=== PATIENT | female | born 1995 | race Caucasian/White ===

== ENCOUNTER 2016-07-13 00:45 | Emergency (ER) | payer OTHER ==
[~2016-07-13] VITALS: Ht 154.9 cm; Wt 62.3 kg
[~2016-07-13 00:45] MED LIST: CLON.5 PO; LAMO150T PO
[2016-07-13 00:53] VITALS: BP 134/93; PULSE 91; RESP 20; TEMP 98.8; O2SAT 97
[2016-07-13] MEDS ORDERED: ONDANSETRON HCL 4 MG/2 ML VIAL IV PUSH ONE (01:30)
[2016-07-13 01:49] LABS: BLOOD, URINE LARGE (NEG); GLUCOSE,URINE NEG (NEG); KETONE, URINE NEG (NEG); NITRITE,URINE NEG (NEG)
[2016-07-13 01:50] LABS: AUTOMATED NEUTROPHIL # 7.8 TH/MM3 (1.8-7.7); BASOPHIL # 0.2 TH/MM3 (0-0.2); BASOPHIL % 1.8 % (0.0-2.0); EOSINOPHIL # 0.1 TH/MM3 (0-0.4); EOSINOPHIL % 1.2 % (0.0-4.0); HEMATOCRIT 41.2 % (35.0-46.0); HEMO FLAGS DIFF FINAL; LYMPH % 16.7 % (9.0-44.0); LYMPHOCYTE # 1.8 TH/MM3 (1.0-4.8); MEAN CORPUSCULAR HEMOGLOBIN 29.5 PG (27.0-34.0); MEAN CORPUSCULAR HGB CONC 33.9 % (32.0-36.0); MONO % 6.6 % (0.0-8.0); NEUT % 73.7 % (16.0-70.0); PLATELET COUNT 302 TH/MM3 (150-450); RED BLOOD COUNT 4.74 MIL/MM3 (4.00-5.30); RED CELL DISTRIBUTION WIDTH 12.1 % (11.6-17.2); WHITE BLOOD COUNT 10.6 TH/MM3 (4.0-11.0)
[2016-07-13 01:51] LABS: URINE COLOR YELLOW (YELLW/STRAW)
[2016-07-13 01:54] LABS: BACTERIA, URINE OCC /hpf; COMMENT (UR) CULTURE INDICATED; CULTURE IF INDICATED CULTURE INDICATED
[2016-07-13 01:56] LABS: CHLORIDE 107 MEQ/L (98-107); POTASSIUM 3.8 MEQ/L (3.5-5.1); SODIUM (NA) 142 MEQ/L (136-145)
[2016-07-13 02:00] LABS: ANION GAP 10 MEQ/L (5-15); BICARBONATE 25.4 MEQ/L (21.0-32.0); BLOOD UREA NITROGEN 9 MG/DL (7-18)
[2016-07-13 02:03] LABS: ALT (GPT) 33 U/L (10-53); AST (GOT) 15 U/L (15-37); GLOMERULAR FILTRATION RATE 94 ML/MIN (>89)
[2016-07-13 02:05] LABS: TOTAL BILIRUBIN ADULT 0.4 MG/DL (0.2-1.0)
[2016-07-13 02:06] LABS: ALKALINE PHOSPHATASE 65 U/L (45-117)
--- NOTE | 2016-07-13 02:18 | PD ---
HPI Chief Complaint: Abdominal Pain Time Seen by Provider: 01:22 Travel History International Travel<30 days: No Contact w/Intl Traveler<30days: No Traveled to known affect area: No History of Present Illness HPI 22 year-old female presents to the emergency department by private transportation for complaint of right lower quadrant abdominal pain and pelvic pain with vaginal bleeding. Patient states that she is physically menstruating but her menstrual pain/cramps for more severe than ever. Patient states that she has had associated nausea and poor oral intake. Patient denies fever chills. No prior history of abdominal surgeries. No prior history of endometriosis and ovarian cyst. Patient does have heavy periods but states typically is brief in duration and response to anti-inflammatories. Patient states symptoms have been present since this evening and progressively worsening and not resolving with ibuprofen and heating pad use. Patient is not sexually active. No dysuria frequency or urgency. No change in bowel habits. Patient describes pain as 8/10 in intensity. No alleviating factors and notes that palpation and movement exacerbates symptoms. PFSH Past Medical History Narrative Medical Anxiety depression no surgeries no tobacco use nursing notes reviewed Bipolar Disorder: Yes Anxiety: Yes Depression: Yes Diminished Hearing: No Tetanus Vaccination: Never Vaccinated ?: Not : 0 Para: 0 Miscarriage: 0 : 0 Past Surgical History Surgical History: No Previous Surgery Social History Alcohol Use: No Tobacco Use: No Substance Use: No Allergies-Medications (Allergen,Severity, Reaction): Coded Allergies: Sulfa (Verified Allergy, Mild, Hives, 07/13/16) Reported Meds & Prescriptions Reported Meds & Active Scripts Active Anaprox DS (Naproxen Sodium) 550 Mg Tab 550 Mg PO Q12HR PRN Reported Klonopin (Clonazepam) 0.5 Mg Tab 0.5 Mg PO BID Lamotrigine 150 Mg Tab 150 Mg PO DAILY Review of Systems Except as stated in HPI: all other systems reviewed are Neg Physical Exam Narrative GENERAL: Well-developed well-nourished female in no acute distress no respiratory distress SKIN: Warm and dry. HEAD: Normocephalic. EYES: No scleral icterus. No injection or drainage. NECK: Supple, trachea midline. No JVD or lymphadenopathy. CARDIOVASCULAR: Regular rate and rhythm without murmurs, gallops, or rubs. RESPIRATORY: Breath sounds equal bilaterally. No accessory muscle use. GASTROINTESTINAL: Abdomen soft, right lower quadrant tenderness to palpation without guarding or rebound, nondistended. Pelvic exam: Normal external exam no redness induration or lesions; speculum exam scant dark blood in the vaginal vault no clots no tissue cervical os is closed; bimanual exam no cervical motion tenderness no uterine enlargement or tenderness to palpation no adnexal tenderness or mass. MUSCULOSKELETAL: No cyanosis, or edema. BACK: Nontender without obvious deformity. No CVA tenderness. Data Data Last Documented VS Vital Signs Date Time Temp Pulse Resp B/P Pulse Ox O2 Delivery O2 Flow Rate FiO2 07/13/16 02:59 90 134/72 99 Room Air 07/13/16 00:53 98.8 20 Orders Complete Blood Count With Diff (07/13/16 01:22) Comprehensive Metabolic Panel (07/13/16 01:22) Wet Prep Profile (07/13/16 01:22) Urinalysis - C+S If Indicated (07/13/16 01:22) Iv Access Insert/Monitor (07/13/16 01:22) Ed Urine Pregnancytest Poc (07/13/16 01:22) Ondansetron Inj (Zofran Inj) (07/13/16 01:30) Urine Culture (07/13/16 01:34) Ct Abd/Pel W Iv Contrast(Rout) (07/13/16 ) Ketorolac Inj (Toradol Inj) (07/13/16 02:30) Iohexol 350 Inj (Omnipaque 350 Inj) (07/13/16 02:57) Labs Laboratory Tests Test 07/13/16 01:34 White Blood Count 10.6 TH/MM3 Red Blood Count 4.74 MIL/MM3 Hemoglobin 14.0 GM/DL Hematocrit 41.2 % Mean Corpuscular Volume 87.0 FL Mean Corpuscular Hemoglobin 29.5 PG Mean Corpuscular Hemoglobin 33.9 % Concent Red Cell Distribution Width 12.1 % Platelet Count 302 TH/MM3 Mean Platelet Volume 8.2 FL Neutrophils (%) (Auto) 73.7 % Lymphocytes (%) (Auto) 16.7 % Monocytes (%) (Auto) 6.6 % Eosinophils (%) (Auto) 1.2 % Basophils (%) (Auto) 1.8 % Neutrophils # (Auto) 7.8 TH/MM3 Lymphocytes # (Auto) 1.8 TH/MM3 Monocytes # (Auto) 0.7 TH/MM3 Eosinophils # (Auto) 0.1 TH/MM3 Basophils # (Auto) 0.2 TH/MM3 CBC Comment DIFF FINAL Differential Comment Urine Color YELLOW Urine Turbidity SLIGHT Urine pH 7.0 Urine Specific [place] 1.020 Urine Protein TRACE mg/dL Urine Glucose (UA) NEG mg/dL Urine Ketones NEG mg/dL Urine Occult Blood LARGE Urine Nitrite NEG Urine Bilirubin NEG Urine Leukocyte Esterase TRACE Urine RBC 25-49 /hpf Urine WBC 9-14 /hpf Urine Squamous Epithelial 6-8 /hpf Cells Urine Bacteria OCC /hpf Microscopic Urinalysis Comment CULTURE INDICATED Clue Cells (Wet Prep) NONE SEEN Vaginal Trichomonas (Wet Prep) NONE SEEN Vaginal Yeast (Wet Prep) NONE SEEN Sodium Level 142 MEQ/L Potassium Level 3.8 MEQ/L Chloride Level 107 MEQ/L Carbon Dioxide Level 25.4 MEQ/L Anion Gap 10 MEQ/L Blood Urea Nitrogen 9 MG/DL Creatinine 0.77 MG/DL Estimat Glomerular Filtration 94 ML/MIN Rate Random Glucose 95 MG/DL Calcium Level 9.0 MG/DL Total Bilirubin 0.4 MG/DL Aspartate Amino Transf 15 U/L (AST/SGOT) Alanine Aminotransferase 33 U/L (ALT/SGPT) Alkaline Phosphatase 65 U/L Total Protein 7.3 GM/DL Albumin 4.2 GM/DL [facility] Medical Decision Making Medical Screen Exam Complete: Yes Emergency Medical Condition: Yes Medical Record Reviewed: Yes Interpretation(s) CBC is automated differential values grossly normal range Urinalysis positive for red blood cells white blood cells bacteria possible contaminated specimen cultures indicated [id number] hCG negative Wet prep negative CMP: values grossly wnl Differential Diagnosis Menstrual cramps, DUB, ruptured ovarian cyst, ovarian torsion, tubo-ovarian abscess, ectopic , appendicitis, UTI, renal colic Narrative Course IV access obtained specimens collected and sent for resulting patient minister [place] for complaint of nausea labs grossly wnl; CT abd/pel pending CT resulted identified to have a large right ovarian cyst scant free fluid in the pelvis presently menstruating and appendix appears normal; this information was shared with the patient and she is encouraged to have follow-up with her primary care provider in order to have follow-up outpatient ultrasound; patient informed to return to the emergency department should she have recurrent increasing pain or any concerns; pain has decreased from 8/10 in intensity to 3/ 10 intensity is able to ambulate without any health strike or peritoneal irritation and is stable at this time for outpatient management. Patient's questions have an answer to her satisfaction. Diagnosis Primary Impression: Right ovarian cyst Referrals: Family Practice Physician 1 day call for follow up appointment [facility] call for appointment Patient Instructions: General Instructions Additional Instructions: Follow-up with primary care provider/[facility] for scheduling outpatient follow-up ultrasound Return to the emergency department for any concerns or change in condition Take Anaprox DS as prescribed as needed for pain associated with inflammation No work times one day Take acetaminophen/Tylenol as needed for fever 100.4F or greater Med/Other Pt SpecificInfo: Prescription(s) given Scripts Naproxen Sodium DS (Anaprox DS)550 Mg [id number] Mg PO Q12HR PRN (PAIN GREATER THAN 5) #12 TAB Ref 0 Prov:Ramona Alas MD 07/13/16 Ramona Alas MD Jul 13, 2016 02:18
[2016-07-13] MEDS ORDERED: KETOROLAC TROMETHAMINE 30 MG/ML (IVP) VIAL IV PUSH ONE (02:30)
[2016-07-13] MEDS ORDERED: IOHEXOL 350 MG/ML 10 ML VIAL (for RAD DIAG) IV ONE (02:57)
[2016-07-13 02:59] VITALS: BP 134/72; PULSE 90; O2SAT 99
--- NOTE | 2016-07-13 03:23 | RADHPO ---
EXAM DATE/TIME: 07/13/2016 02:39 [facility] COMPARISON: No previous studies available for comparison. INDICATIONS : Lower abdominal pain. IV CONTRAST: 75 cc Omnipaque 350 (iohexol) IV ORAL CONTRAST: No oral contrast ingested. RADIATION DOSE: 5.39 CTDIvol (mGy) MEDICAL HISTORY : None SURGICAL HISTORY : None. ENCOUNTER: Initial ACUITY: 1 day PAIN SCALE: 8/10 LOCATION: Bilateral lower quadrant TECHNIQUE: Volumetric scanning of the abdomen and pelvis was performed. Using automated exposure control and ad justment of the mA and/or kV according to patient size, radiation dose was kept as low as reasonably achievable to obtain optimal diagnostic quality images. FINDINGS: CT Abdomen: The liver, spleen, pancreas, kidneys, adrenals are unremarkable. There is no evidence for any appreciable pathological adenopathy, free fluid, or bowel obstruction. CT pelvis: The appendix appears intact without definite signs of appendicitis. There is slight fluid within the cul-de-sac. There is an approximate 7.5 cm cystic mass most likely ovarian abutting the do me of the bladder. CONCLUSION: Large cystic mass in the right ovary could be a functional cyst with slight fluid in the cul-de-sac. The appearance is however nonspecific and other cystic masses should also be entertai manuel and follow up is suggested with pelvic ultrasound in 3 months after appropriate clinical therapy. Corey Devi MD on July 13, 2016 at 3:17 Board Certified Radiologist. This report was verified electronically.
[2016-07-13] MEDS ORDERED: NAPR550 PO (03:49)
== END 2016-07-13 04:05 | disposition home or self-care (01) ==
LOC: PHED 00:45
DX: N83.201 Unspecified ovarian cyst, right side (principal); N94.6 Dysmenorrhea, unspecified
CPT/HCPCS: 74177; 80053; 81001; 84703; 85025; 87086; 87210; 96374; 96375; 99284; J1885; J2405; Q9967